=== PATIENT | female | born 1975 | race Caucasian/White ===

== ENCOUNTER 2024-10-19 09:26 | Outpatient (CLI) | payer OTHER, SELFPAY ==
[2024-10-19 12:19] LABS: Chlamydia DNA Amplified* NOT DETECTED (No Detected); GC DNA Amplified* NOT DETECTED (No Detected)
== END 2024-10-19 09:27 | disposition home or self-care (01) ==
PROVIDERS: Visit Provider Obstetrics & Gynecology
DX: N93.9 Abnormal uterine and vaginal bleeding, unspecified (principal); Z11.3 Encounter for screening for infections with a predominantly sexual mode of transmission
CPT/HCPCS: 82670; 83001; 84146; 84443; 87491; 87591

== ENCOUNTER 2024-10-19 13:32 | Outpatient (CLI) | payer OTHER, SELFPAY ==
--- NOTE | 2024-10-19 14:00 | CRLHL7_ITS ---
For Patients: As a result of the Century Cures Act, medical imaging exams and procedure reports are released immediately into your electronic medical record. You may view this report before your referring provider. If you have questions, please contact your health care provider. INDICATION: Abnormal uterine bleeding for 1 month. TECHNIQUE: Ultrasound pelvis transabdominal and transvaginal for better assessment or to better visualize the endometrium. Real-time sonographic images with spectral and color Doppler imaging of the ovaries were obtained. COMPARISON: None. FINDINGS: Uterus: 10.8 x 6.0 x 7.0 cm. 1.7 cm subserosal right anterior fundal uterine fibroid. Otherwise, unremarkable. Endometrium: Transvaginal imaging was performed to better evaluate the endometrium. Endometrial thickness measures 21 mm. No sign of endometrial mass or fluid. Right ovary measures 4.7 x 4.0 x 3.1 cm. Left ovary measures 3.3 x 1.4 x 2.6 cm. The right ovary is enlarged by a simple cyst and several follicles, the largest measuring 3.3 cm. Normal left ovary normal arterial and venous blood flow is demonstrated in both ovaries. Cul-de-sac: No significant free fluid. IMPRESSION: 1. Thickened endometrial stripe measuring up to 2.1 cm. No focal mass identified. 2. 1.7 cm anterior fundal right uterine fibroid. 3. Simple 3.3 cm right ovarian cyst. No evidence for ovarian torsion. Dictated by Hi Davalos MD @ 10/20/2024 12:15:12 AM (Electronically Signed)
== END 2024-10-19 13:33 | disposition home or self-care (01) ==
LOC: US 13:34
PROVIDERS: Visit Provider Obstetrics & Gynecology
DX: N93.9 Abnormal uterine and vaginal bleeding, unspecified (principal); D25.9 Leiomyoma of uterus, unspecified; N83.201 Unspecified ovarian cyst, right side; R93.89 Abnormal findings on diagnostic imaging of other specified body structures
CPT/HCPCS: 76830; 76856

== ENCOUNTER 2024-11-09 11:07 | Outpatient (CLI) | payer OTHER, SELFPAY ==
[2024-11-11 01:03] LABS: HPV Source Cervical; HPV, High Risk by TMA Not Detected
[2024-11-21 14:55] LABS: Pap Test Reviewed by Path Done
== END 2024-11-09 11:08 | disposition home or self-care (01) ==
PROVIDERS: Visit Provider Obstetrics & Gynecology
DX: Z12.4 Encounter for screening for malignant neoplasm of cervix (principal); Z11.51 Encounter for screening for human papillomavirus (HPV)
CPT/HCPCS: 87624; 87625; 88141; 88142

== ENCOUNTER 2024-12-21 14:12 | Outpatient (CLI) | payer OTHER, SELFPAY ==
[2025-01-05 17:18] LABS: Pap Test Reviewed by Path Done
== END 2024-12-21 14:13 | disposition home or self-care (01) ==
LOC: NFLDREF 14:14
PROVIDERS: Visit Provider Obstetrics & Gynecology
DX: Z12.4 Encounter for screening for malignant neoplasm of cervix (principal); R87.615 Unsatisfactory cytologic smear of cervix
CPT/HCPCS: 88141; 88142

== ENCOUNTER 2025-03-26 17:58 | Outpatient (CLI) | payer OTHER, SELFPAY | END 2025-03-26 17:59 | disposition home or self-care (01) | LOC: NFLDREF 04-04 15:15 | DX: N39.0 Urinary tract infection, site not specified (principal); B96.20 Unspecified Escherichia coli [E. coli] as the cause of diseases classified elsewhere | CPT/HCPCS: 87086 ==

== ENCOUNTER 2025-05-29 09:33 | Outpatient (CLI) | payer OTHER, SELFPAY | END 2025-05-29 09:34 | disposition home or self-care (01) | PROVIDERS: Visit Provider Physician Assistant | DX: N30.01 Acute cystitis with hematuria (principal) | CPT/HCPCS: 87086 ==

== ENCOUNTER 2025-06-13 10:15 | Outpatient (CLI) | payer OTHER, SELFPAY ==
[2025-06-13 15:24] LABS: Bacterial Vaginosis* Negative (Negative); Candida glab/krus NOT DETECTED (No Detected)
== END 2025-06-13 10:16 | disposition home or self-care (01) ==
LOC: NFLDREF 10:17
PROVIDERS: Visit Provider Obstetrics & Gynecology
DX: Z11.3 Encounter for screening for infections with a predominantly sexual mode of transmission (principal)
CPT/HCPCS: 81513; 87481; 87491; 87591; 87661